=== PATIENT | female | born 1965 | race Two or more races ===

== ENCOUNTER 2021-10-23 09:54 | Emergency (ER) | payer OTHER ==
[~2021-10-23] VITALS: Ht 165.1 cm; Wt 97.5 kg
[2021-10-23] MEDS ORDERED: ALTACE10 MG PO (10:06)
[2021-10-23] MEDS ORDERED: LEVOFLOXACIN500 MG PO (15:50)
== END 2021-10-23 15:57 | disposition home or self-care (01) ==
LOC: ER 09:54
DX: N20.0 Calculus of kidney (principal); N83.201 Unspecified ovarian cyst, right side